=== PATIENT | female | born 1965 | race Caucasian/White ===

== ENCOUNTER 2021-02-14 11:13 | Outpatient (CLI) | payer OTHER, SELFPAY ==
--- NOTE | 2021-02-14 11:25 | XRR_ITS ---
PROCEDURE INFORMATION: Exam: XR Lumbosacral Spine Exam date and time: 02/14/2021 11:25 AM Age: 55 years old Clinical indication: Injury or trauma; Fall; Work related; Blunt trauma (contusions or hematomas); Additional info: Pain and injury TECHNIQUE: Imaging protocol: XR of the lumbosacral spine. Views: 2 or 3 views. COMPARISON: No relevant prior studies available. FINDINGS: Bones/joints: There is mild lumbar scoliosis convex the right. No fracture or other acute abnormalities are seen. There is no malalignment. Chronic degenerative changes are present throughout the lumbar spine with joint space narrowing sclerosis and osteophytes. There is sclerosis of the lower lumbar facet joints. Soft tissues: Unremarkable. XR/XR lumbar spine 2-3V* [id number] IMPRESSION: Chronic degenerative disease. No acute abnormality.
--- NOTE | 2021-02-14 11:25 | XRR_ITS ---
PROCEDURE INFORMATION: Exam: XR Left Knee Exam date and time: 02/14/2021 11:25 AM Age: 55 years old Clinical indication: Injury or trauma; Fall; Work related; Blunt trauma; Knee; Left; Additional info: Injury and pain TECHNIQUE: Imaging protocol: XR Left knee. Views: 3 views. COMPARISON: No relevant prior studies available. FINDINGS: Bones/joints: Mild degenerative changes are present with small osteophyte formation. The joint spaces are not significantly narrowed. No fracture or other acute abnormalities are seen. Soft tissues: Normal. XR/XR knee LT 3V* [id number] IMPRESSION: Mild degenerative disease. No acute abnormality.
== END 2021-02-14 11:14 | disposition home or self-care (01) ==
PROVIDERS: PCP Family Medicine; Visit Provider Nurse Practitioner
DX: M25.562 Pain in left knee (principal); M54.5 Low back pain
CPT/HCPCS: 72100; 73562

== ENCOUNTER 2021-04-13 14:43 | Outpatient (CLI) | payer OTHER, SELFPAY ==
--- NOTE | 2021-04-13 15:15 | MR_ITS ---
WS: [id number] MRI LEFT KNEE HISTORY: M25.569 - Pain in unspecified knee COMPARISON: 02/14/2021 Anterior cruciate ligament: Intact. Posterior cruciate ligament: Intact. Medial collateral ligament: Intact. Posterior lateral corner structures: Intact. Medial menisci: Mild fraying along the surfaces of the posterior horn. 2 mm area of increased signal within the central posterior meniscus. Does not definitely extend to an articular surface. Lateral meniscus: Normal. Extensor mechanism: Distal quadriceps tendon and patellar tendons are intact. Fluid and soft tissue: No joint effusion. No Smith's cyst. Osseous and articular structures: Patellofemoral compartment: Normal. Medial compartment: Very mild fissuring of the cartilage. No marrow edema. Lateral compartment: Normal. There is increase fluid along the inferior most infrapatellar fat pad towards the joint. Fluid extend s into the fat pad and this may be causing some symptoms. This could be a tear within the fat pad fro m prior trauma. MR/MR knee LT wo con* [id number] IMPRESSION: 1. Very minimal intrasubstance degeneration of the posterior horn medial menis cus. 2. No fractures or marrow edema. 3. Minimal thinning of the cartilage in the medial compartment. 4. Fluid extends into the infrapatellar fat pad. This could be from a prior in jury or tear.
== END 2021-04-13 14:44 | disposition home or self-care (01) ==
LOC: RADSHAW 14:45
PROVIDERS: PCP Family Medicine; Visit Provider Orthopaedic Surgery
DX: M25.569 Pain in unspecified knee (principal); M25.562 Pain in left knee; M23.322 Other meniscus derangements, posterior horn of medial meniscus, left knee
CPT/HCPCS: 73721